=== PATIENT | male | born 1975 | race Caucasian/White ===

== ENCOUNTER 2017-08-13 21:25 | Emergency (ER) | payer MEDICARE, MEDICAID ==
[~2017-08-13] VITALS: Ht 182.9 cm; Wt 112.6 kg
[2017-08-13 22:25] VITALS: BP 142/85
== END 2017-08-13 22:27 | disposition home or self-care (01) ==
LOC: ER 21:26
DX: B34.9 Viral infection, unspecified (principal)
CPT/HCPCS: 99281

== ENCOUNTER 2017-08-16 09:40 | Inpatient (IN) | payer MEDICARE, MEDICAID ==
[~2017-08-16] VITALS: Ht 182.9 cm; Wt 107.2 kg
[2017-08-16] MEDS ORDERED: normal saline 1000ML IV soln IVB ONE (10:10)
[2017-08-16 10:30] LABS: BASOPHILS % (AUTO) 0.1 % (0-1); EOSINOPHILS # (AUTO) 0.2 X10'3 (0-0.9); EOSINOPHILS % (AUTO) 1.1 % (0-6); HEMATOCRIT 43.6 % (42.0-52.0); HEMOGLOBIN 14.6 g/dl (14.0-17.9); LYMPHOCYTES # (AUTO) 0.9 X10'3 (1.1-4.8); LYMPHOCYTES % (AUTO) 5.5 % (21-51); MEAN CORPUSCULAR HEMOGLOBIN 27.6 PG (27.0-31.0); MEAN CORPUSCULAR HGB CONC 33.6 % (33.0-36.5); MEAN CORPUSCULAR VOLUME 82.2 FL (78-98); MEAN PLATELET VOLUME 10.1 FL (7.4-10.4); MONOCYTES % (AUTO) 6.4 % (2-12); NEUTROPHILS # (AUTO) 13.4 X10'3 (1.8-7.7); NEUTROPHILS % (AUTO) 86.9 % (42-75); PLATELET COUNT 178 X10'3 (140-440); RED BLOOD COUNT 5.31 X10'6 (4.70-6.10); RED CELL DISTRIBUTION WIDTH 13.1 % (11.5-14.5); WHITE BLOOD COUNT 15.4 X10'3 (4.5-11.0)
[2017-08-16 10:40] LABS: PARTIAL THROMBOPLASTIN TIME 27 SECONDS (22-32); PROTHROMBIN TIME 10.7 SECONDS (9.0-12.0)
[2017-08-16 10:48] LABS: ALANINE AMINOTRANSFERASE 11 U/L (12-78); ALBUMIN 3.2 G/DL (3.4-5.0); ALBUMIN/GLOBULIN RATIO 0.6 (1.1-1.5); ALKALINE PHOSPHATASE 102 IU/L (46-116); ANION GAP 25 (8-16); ASPARTATE AMINO TRANSFERASE 7 U/L (10-37); BILIRUBIN,TOTAL 1.1 MG/DL (0.1-1.0); BLOOD UREA NITROGEN 24 MG/DL (7-18); BUN/CREATININE RATIO 16.4 (5.4-32.0); CHLORIDE 99 MMOL/L (99-107); CREATININE 1.46 MG/DL (0.60-1.10); ETHANOL < 0.010 GM/DL (0.0-0.010); POTASSIUM 4.5 MMOL/L (3.5-5.1); SODIUM 137 MMOL/L (135-145); TOTAL PROTEIN 8.3 G/DL (6.4-8.2); eGFR 53 ML/MIN
[2017-08-16 10:50] LABS: GLUCOSE 493 MG/DL (70-104)
[2017-08-16] MEDS ORDERED: potassium Cl 20 mEq SR tablet PO PRN ×4 (11:05→12:25)
[2017-08-16] MEDS ORDERED: sodium phosphate inj. 30 MMOL in dextrose 5%-water 250 ML IV PRN ×2 (11:05→12:25)
[2017-08-16] MEDS ORDERED: sodium bicarbonate (8.4%) inj. 100 MEQ in sodium chloride 0.45% 500ml 500 ML IV PRN ×2 (11:05→12:24)
[2017-08-16] MEDS ORDERED: potassium Cl 40MEQ/NS 500ml 500 ML IV PRN ×4 (11:05→12:25)
[2017-08-16] MEDS ORDERED: sodium bicarbonate (8.4%) inj. 50 MEQ in sodium chloride 0.45% 500ml 250 ML IV PRN ×2 (11:05→12:24)
[2017-08-16] MEDS ORDERED: potassium CL 20mEq in D5-1/2NS 1,000 ML IV PRN ×2 (11:05→12:24)
[2017-08-16] MEDS ORDERED: sodium phosphate inj. 15 MMOL in dextrose 5%-water 150 ML IV PRN ×2 (11:05→12:25)
[2017-08-16] MEDS ORDERED: acetaminophen 325mg tablet PO STA (11:05)
[2017-08-16] MEDS ORDERED: insulin regular, human 10 units/0.1 ml syringe SQ PRN ×2 (11:05→12:25)
[2017-08-16] MEDS ORDERED: Neutra Phos packet PO PRN ×2 (11:05→12:25)
[2017-08-16] MEDS ORDERED: normal saline 1000ml 1,000 ML IV SCH (11:05)
[2017-08-16] MEDS: normal saline 1000ml 1,000 ML IV SCH ×7 (11:22→20:24)
[2017-08-16 12:10] LABS: ABG BASE EXCESS -15.4 mmol/L (-2.0-3.0); ABG HCO3 8.5 mmol/L (22.0-26.0); ABG OXYGEN SATURATION 95.6 % (95-98); ABG PCO2 (T) 17.9 mmHg (35.0-48.0); ABG PH (T) 7.292 (7.350-7.450); ABG PO2 (T) 80.9 mmHg (83-108); ALLEN'S TEST Positive; FMetHb 0.3 % (0.3-1.12); FO2Hb 94.4 % (94-100); RESPIRATORY RATE (OBSERVED) 26 b/min; TOTAL HEMOGLOBIN 15.1 G/dl (14.0-18.0)
[2017-08-16] MEDS ORDERED: insulin regular, DKA only 100 UNIT in normal saline 100ml IV soln 99 ML IV SCH ×2 (12:24)
[2017-08-16] MEDS: K and/or MAG REPLACEMENT MC SCH (12:25)
[2017-08-16] MEDS ORDERED: CefTRIAXone 2gm/NS 100ml IVPB 100 ML IV ONE ×2 (13:30→13:35)
[2017-08-16] MEDS: insulin regular, DKA only 100 UNIT in normal saline 100ml IV soln 99 ML IV SCH ×2 (13:31)
[2017-08-16 15:11] LABS: ALBUMIN 2.8 G/DL (3.4-5.0); ANION GAP 22 (8-16); BLOOD UREA NITROGEN 22 MG/DL (7-18); BUN/CREATININE RATIO 15.3 (5.4-32.0); CALCIUM 8.4 MG/DL (8.5-10.1); CHLORIDE 107 MMOL/L (99-107); CREATININE 1.44 MG/DL (0.60-1.10); GLUCOSE 370 MG/DL (70-104); POTASSIUM 4.3 MMOL/L (3.5-5.1); SODIUM 143 MMOL/L (135-145); eGFR 54 ML/MIN
[2017-08-16 15:13] LABS: TOTAL CARBON DIOXIDE 13.8 MMOL/L (24-32)
[2017-08-16] MEDS ORDERED: magnesium hydroxide 30ml (MOM) UD suspension PO PRN (16:00)
[2017-08-16] MEDS ORDERED: acetaminophen 325mg tablet PO PRN (16:00)
[2017-08-16] MEDS ORDERED: mag hydrox/Alum hydrox/simeth 30ml oral suspension PO PRN (16:00)
[2017-08-16] MEDS ORDERED: ondansetron/PF 4mg/2ml inj IV PRN (16:00)
[2017-08-16] MEDS ORDERED: NO HOME MEDS (16:25)
[2017-08-16] MEDS ORDERED: LORazepam 1 MG tablet PO ONE (17:05)
[2017-08-16 18:39] LABS: CLARITY,URINE CLEAR (Clear); COLOR,URINE YELLOW (Yellow); GLUCOSE, URINE 500 mg/dl (Neg); KETONES,URINE >=80 mg/dl (Neg); LEUKOCYTE ESTERASE ,URINE NEGATIVE (Neg); NITRITES, URINE NEGATIVE (Neg); OCCULT BLOOD,URINE SMALL (Neg); PH,URINE 5.5 (4.8-8.0); PROTEIN,URINE 30 mg/dl (Neg)
[2017-08-16 18:50] LABS: UA COLLECTION TYPE FOLEY CATH
[2017-08-16 18:54] LABS: URINE AMPHETAMINE SCREEN NEGATIVE (Neg); URINE BARBITUATE SCREEN NEGATIVE (Neg); URINE BENZODIAZEPINES SCREEN NEGATIVE (Neg); URINE CANNABINOID SCREEN NEGATIVE (Neg); URINE COCAINE SCREEN NEGATIVE (Neg); URINE METHADONE SCREEN NEGATIVE (Neg); URINE OPIATE SCREEN NEGATIVE (Neg); URINE PHENCYCLIDINE SCREEN NEGATIVE (Neg)
[2017-08-16 18:56] LABS: COARSE GRANULAR CAST 0-3 /LPF (NEGATIVE); MUCUS STRANDS NONE SEEN /LPF (Neg); SQUAMOUS EPITHELIAL CELL,UR NONE SEEN /LPF (FEW)
[2017-08-16 18:57] LABS: RENAL CELLS, URINE MANY /HPF; TRANSITIONAL EPI CELLS,URINE MANY /HPF
[2017-08-16 18:58] LABS: BACTERIA,URINE NONE SEEN /HPF (Neg); WBC,URINE 0-4 /HPF (0-4)
[2017-08-16 19:15] VITALS: BP 118/67
[2017-08-16 21:03] LABS: HEMOGLOBIN A1C 10.8 % (4.5-6.2)
[2017-08-16 21:11] LABS: ALBUMIN 2.6 G/DL (3.4-5.0); ANION GAP 18 (8-16); BLOOD UREA NITROGEN 21 MG/DL (7-18); BUN/CREATININE RATIO 16.9 (5.4-32.0); CALCIUM 8.1 MG/DL (8.5-10.1); CHLORIDE 109 MMOL/L (99-107); CREATININE 1.24 MG/DL (0.60-1.10); GLUCOSE 262 MG/DL (70-104); PHOSPHORUS 2.3 MG/DL (2.3-4.5); POTASSIUM 3.9 MMOL/L (3.5-5.1); SODIUM 142 MMOL/L (135-145); TOTAL CARBON DIOXIDE 15.2 MMOL/L (24-32); eGFR 65 ML/MIN
[2017-08-16] MEDS: potassium Cl 20mEq in NS 1,000 ML IV SCH (21:23)
[2017-08-16 22:51] LABS: ALBUMIN 2.6 G/DL (3.4-5.0); ANION GAP 18 (8-16); BLOOD UREA NITROGEN 20 MG/DL (7-18); BUN/CREATININE RATIO 16.9 (5.4-32.0); CALCIUM 8.3 MG/DL (8.5-10.1); CHLORIDE 111 MMOL/L (99-107); CREATININE 1.18 MG/DL (0.60-1.10); GLUCOSE 194 MG/DL (70-104); PHOSPHORUS 1.9 MG/DL (2.3-4.5); POTASSIUM 3.7 MMOL/L (3.5-5.1); SODIUM 144 MMOL/L (135-145); TOTAL CARBON DIOXIDE 15.1 MMOL/L (24-32); eGFR 68 ML/MIN
[2017-08-16 23:00] VITALS: BP 108/53
[2017-08-17] MEDS: normal saline 1000ml 1,000 ML IV SCH ×3 (00:24→08:24)
[2017-08-17] MEDS: potassium Cl 20mEq in NS 1,000 ML IV SCH ×3 (00:51→08:49)
[2017-08-17 01:06] LABS: ALBUMIN 2.4 G/DL (3.4-5.0); ANION GAP 14 (8-16); BLOOD UREA NITROGEN 19 MG/DL (7-18); BUN/CREATININE RATIO 16.2 (5.4-32.0); CALCIUM 7.7 MG/DL (8.5-10.1); CHLORIDE 109 MMOL/L (99-107); CREATININE 1.17 MG/DL (0.60-1.10); GLUCOSE 343 MG/DL (70-104); POTASSIUM 4.5 MMOL/L (3.5-5.1); SODIUM 140 MMOL/L (135-145); TOTAL CARBON DIOXIDE 16.8 MMOL/L (24-32); eGFR 69 ML/MIN
[2017-08-17 03:00] VITALS: BP 118/72
[2017-08-17 03:06] LABS: ALBUMIN 2.5 G/DL (3.4-5.0); ANION GAP 13 (8-16); BLOOD UREA NITROGEN 20 MG/DL (7-18); BUN/CREATININE RATIO 18.2 (5.4-32.0); CALCIUM 8.2 MG/DL (8.5-10.1); CHLORIDE 111 MMOL/L (99-107); GLUCOSE 114 MG/DL (70-104); PHOSPHORUS 1.5 MG/DL (2.3-4.5); POTASSIUM 3.5 MMOL/L (3.5-5.1); SODIUM 143 MMOL/L (135-145); TOTAL CARBON DIOXIDE 18.9 MMOL/L (24-32); eGFR 74 ML/MIN
[2017-08-17 04:55] LABS: ALBUMIN 2.3 G/DL (3.4-5.0); ANION GAP 12 (8-16); BLOOD UREA NITROGEN 19 MG/DL (7-18); BUN/CREATININE RATIO 17.1 (5.4-32.0); CALCIUM 7.8 MG/DL (8.5-10.1); CHLORIDE 109 MMOL/L (99-107); CREATININE 1.11 MG/DL (0.60-1.10); GLUCOSE 309 MG/DL (70-104); POTASSIUM 4.4 MMOL/L (3.5-5.1); SODIUM 139 MMOL/L (135-145); TOTAL CARBON DIOXIDE 17.7 MMOL/L (24-32); eGFR 73 ML/MIN
[2017-08-17 06:00] VITALS: BP 100/64
[2017-08-17] MEDS: insulin regular, DKA only 100 UNIT in normal saline 100ml IV soln 99 ML IV SCH ×2 (07:11)
[2017-08-17] MEDS: K and/or MAG REPLACEMENT MC SCH (08:00)
[2017-08-17] MEDS ORDERED: K and/or MAG REPLACEMENT MC SCH (08:00)
[2017-08-17 08:39] LABS: ALANINE AMINOTRANSFERASE 6 U/L (12-78); ALBUMIN 2.4 G/DL (3.4-5.0); ALBUMIN/GLOBULIN RATIO 0.6 (1.1-1.5); ALKALINE PHOSPHATASE 77 IU/L (46-116); ANION GAP 13 (8-16); ASPARTATE AMINO TRANSFERASE 8 U/L (10-37); BILIRUBIN,TOTAL 0.4 MG/DL (0.1-1.0); BLOOD UREA NITROGEN 17 MG/DL (7-18); BUN/CREATININE RATIO 15.5 (5.4-32.0); CALCIUM 8.4 MG/DL (8.5-10.1); CHLORIDE 110 MMOL/L (99-107); GLUCOSE 165 MG/DL (70-104); POTASSIUM 3.3 MMOL/L (3.5-5.1); SODIUM 142 MMOL/L (135-145); TOTAL PROTEIN 6.7 G/DL (6.4-8.2); eGFR 74 ML/MIN
[2017-08-17 11:00] VITALS: BP 110/65
[2017-08-17 11:47] LABS: ALANINE AMINOTRANSFERASE 11 U/L (12-78); ALBUMIN 2.4 G/DL (3.4-5.0); ALBUMIN/GLOBULIN RATIO 0.6 (1.1-1.5); ALKALINE PHOSPHATASE 78 IU/L (46-116); ANION GAP 13 (8-16); ASPARTATE AMINO TRANSFERASE 10 U/L (10-37); BILIRUBIN,TOTAL 0.4 MG/DL (0.1-1.0); BLOOD UREA NITROGEN 16 MG/DL (7-18); CALCIUM 8.1 MG/DL (8.5-10.1); CHLORIDE 108 MMOL/L (99-107); GLUCOSE 183 MG/DL (70-104); POTASSIUM 3.1 MMOL/L (3.5-5.1); SODIUM 140 MMOL/L (135-145); TOTAL CARBON DIOXIDE 18.6 MMOL/L (24-32); TOTAL PROTEIN 6.6 G/DL (6.4-8.2); eGFR 83 ML/MIN
[2017-08-17] MEDS ORDERED: azithromycin/NS 500mg/250ml 250 ML IV ONE (11:55)
[2017-08-17] MEDS ORDERED: cefTRIAXone 1g/NS 100ml IVPB 100 ML IV ONE (11:55)
[2017-08-17] MEDS: LORazepam 2 mg/ml vial IV PRN ×2 (13:21→13:56)
[2017-08-17 15:00] VITALS: BP 119/83
[2017-08-17 15:08] LABS: CLARITY,URINE Clear (Clear); COLOR,URINE Yellow (Yellow); GLUCOSE, URINE >=1000 mg/dl (Neg); KETONES,URINE 40 mg/dl (Neg); LEUKOCYTE ESTERASE ,URINE Negative (Neg); NITRITES, URINE Negative (Neg); OCCULT BLOOD,URINE Trace (Neg); PROTEIN,URINE 30 mg/dl (Neg)
[2017-08-17 15:18] LABS: UA COLLECTION TYPE STRAIGHT CATH
[2017-08-17 15:19] LABS: BACTERIA,URINE NONE SEEN /HPF (Neg); MUCUS STRANDS NONE SEEN /LPF (Neg); SQUAMOUS EPITHELIAL CELL,UR NONE SEEN /LPF (FEW); WBC,URINE NONE SEEN /HPF (0-4)
[2017-08-17 15:20] LABS: ALANINE AMINOTRANSFERASE 6 U/L (12-78); ALBUMIN 2.3 G/DL (3.4-5.0); ALBUMIN/GLOBULIN RATIO 0.5 (1.1-1.5); ALKALINE PHOSPHATASE 82 IU/L (46-116); ANION GAP 13 (8-16); ASPARTATE AMINO TRANSFERASE 9 U/L (10-37); BILIRUBIN,TOTAL 0.5 MG/DL (0.1-1.0); BLOOD UREA NITROGEN 14 MG/DL (7-18); BUN/CREATININE RATIO 12.3 (5.4-32.0); CALCIUM 8.2 MG/DL (8.5-10.1); CHLORIDE 107 MMOL/L (99-107); CREATININE 1.14 MG/DL (0.60-1.10); GLUCOSE 271 MG/DL (70-104); POTASSIUM 3.5 MMOL/L (3.5-5.1); SODIUM 139 MMOL/L (135-145); TOTAL CARBON DIOXIDE 18.6 MMOL/L (24-32); TOTAL PROTEIN 6.7 G/DL (6.4-8.2); eGFR 71 ML/MIN
[2017-08-17] MEDS ORDERED: valproate sod inj 1,000 MG in normal saline 100ml IV soln 90 ML IV ONE (18:00)
[2017-08-17] MEDS ORDERED: LevETIRAcetam 1500 MG in NORMAL SALINE 100ml bag IV ONE (18:25)
[2017-08-17 19:00] VITALS: BP 130/79
[2017-08-17] MEDS ORDERED: dexamethasone sod phosphate 10mg/ml inj IV ONE (21:20)
[2017-08-17] MEDS ORDERED: potassium Cl 40MEQ/250ML bag 250 ML IV PRN ×2 (22:45)
[2017-08-17 23:00] VITALS: BP 94/64
[2017-08-17 23:04] LABS: ALANINE AMINOTRANSFERASE 13 U/L (12-78); ALBUMIN 2.3 G/DL (3.4-5.0); ALBUMIN/GLOBULIN RATIO 0.5 (1.1-1.5); ALKALINE PHOSPHATASE 82 IU/L (46-116); ANION GAP 14 (8-16); ASPARTATE AMINO TRANSFERASE 12 U/L (10-37); BILIRUBIN,TOTAL 0.4 MG/DL (0.1-1.0); BLOOD UREA NITROGEN 11 MG/DL (7-18); BUN/CREATININE RATIO 12.6 (5.4-32.0); CALCIUM 8.1 MG/DL (8.5-10.1); CHLORIDE 106 MMOL/L (99-107); CREATININE 0.87 MG/DL (0.60-1.10); GLUCOSE 140 MG/DL (70-104); SODIUM 139 MMOL/L (135-145); TOTAL CARBON DIOXIDE 19.1 MMOL/L (24-32); TOTAL PROTEIN 6.8 G/DL (6.4-8.2); eGFR > 90 ML/MIN
[2017-08-17] MEDS ORDERED: acetaminophen 650mg rectal suppository RC PRN (23:05)
[2017-08-17 23:13] LABS: POTASSIUM 2.8 MMOL/L (3.5-5.1)
[2017-08-17] MEDS ORDERED: potassium Cl 40MEQ/NS 500ml 1,000 ML IV ONE (23:54)
[2017-08-18] VITALS (22 sets, daily range): BP systolic 95–140; BP diastolic 63–90
[2017-08-18] MEDS: Dextrose 10%-water IV solution 1,000 ML IV SCH ×2 (01:23→07:00)
[2017-08-18] MEDS ORDERED: potassium Cl 40MEQ/250ML bag 500 ML IV ONE (01:44)
[2017-08-18] MEDS: dexamethasone 4mg/ml inj IV SCH ×4 (03:11→20:52)
[2017-08-18] MEDS ORDERED: vasoPRESSIN 20 units/ml inj. ONE (05:49)
[2017-08-18 07:10] LABS: BASOPHILS % (AUTO) 0 % (0-1); EOSINOPHILS # (AUTO) 0.1 X10'3 (0-0.9); EOSINOPHILS % (AUTO) 1.2 % (0-6); HEMATOCRIT 40.3 % (42.0-52.0); HEMOGLOBIN 13.9 g/dl (14.0-17.9); LYMPHOCYTES # (AUTO) 0.8 X10'3 (1.1-4.8); LYMPHOCYTES % (AUTO) 7.2 % (21-51); MEAN CORPUSCULAR HEMOGLOBIN 27.6 PG (27.0-31.0); MEAN CORPUSCULAR HGB CONC 34.6 % (33.0-36.5); MEAN CORPUSCULAR VOLUME 79.7 FL (78-98); MONOCYTES # (AUTO) 0.3 X10'3 (0-0.9); MONOCYTES % (AUTO) 2.5 % (2-12); NEUTROPHILS # (AUTO) 10.4 X10'3 (1.8-7.7); NEUTROPHILS % (AUTO) 89.1 % (42-75); PLATELET COUNT 172 X10'3 (140-440); RED BLOOD COUNT 5.06 X10'6 (4.70-6.10); RED CELL DISTRIBUTION WIDTH 12.7 % (11.5-14.5); WHITE BLOOD COUNT 11.6 X10'3 (4.5-11.0)
[2017-08-18] MEDS ORDERED: magnesium 4gm in 100ml NS 100 ML IV PRN (07:10)
[2017-08-18] MEDS ORDERED: magnesium 2GM in 50ml NS 50 ML IV PRN (07:10)
[2017-08-18 07:26] LABS: ANION GAP 12 (8-16); BILIRUBIN,TOTAL 0.4 MG/DL (0.1-1.0); BLOOD UREA NITROGEN 10 MG/DL (7-18); BUN/CREATININE RATIO 12.5 (5.4-32.0); CALCIUM 8.7 MG/DL (8.5-10.1); CHLORIDE 104 MMOL/L (99-107); GLUCOSE 145 MG/DL (70-104); POTASSIUM 3.7 MMOL/L (3.5-5.1); SODIUM 137 MMOL/L (135-145); TOTAL CARBON DIOXIDE 20.6 MMOL/L (24-32); TOTAL PROTEIN 7.6 G/DL (6.4-8.2); eGFR > 90 ML/MIN
[2017-08-18 07:27] LABS: ALANINE AMINOTRANSFERASE 14 U/L (12-78); ALBUMIN 2.5 G/DL (3.4-5.0); ALBUMIN/GLOBULIN RATIO 0.5 (1.1-1.5); ALKALINE PHOSPHATASE 89 IU/L (46-116); ASPARTATE AMINO TRANSFERASE 17 U/L (10-37)
[2017-08-18] MEDS: K and/or MAG REPLACEMENT MC SCH (08:00)
[2017-08-18] MEDS ORDERED: dextrose ORAL solution 15 GM/59 ML bottle PO PRN ×4 (08:15)
[2017-08-18] MEDS ORDERED: dextrose 50%-water 50ml dispensing syringe IV PRN ×4 (08:15)
[2017-08-18] MEDS ORDERED: glucagon, human recombinant 1mg kit SUBCUT PRN ×2 (08:15)
[2017-08-18] MEDS ORDERED: insulin Lispro (HumaLOG) vial - multi-dose SQ SCH (08:15)
[2017-08-18] MEDS ORDERED: MESSAGE TO PHARMACY PO ONE ×2 (08:15)
[2017-08-18] MEDS: cefTRIAXone 1g/NS 100ml IVPB 100 ML IV SCH (08:18)
[2017-08-18] MEDS ORDERED: insulin glargine (Lantus) pen - multi-dose SQ ONE (09:40)
[2017-08-18] MEDS: levetiracetam inj 500 MG in normal saline 100ml IV soln 95 ML IV SCH ×2 (09:45→20:50)
[2017-08-18] MEDS: azithromycin/NS 500mg/250ml 250 ML IV SCH (09:46)
[2017-08-18] MEDS: insulin Lispro (HumaLOG) vial - multi-dose SQ SCH ×4 (10:50→21:13)
[2017-08-18] MEDS ORDERED: insulin regular, DKA only 100 UNIT in normal saline 100ml IV soln 99 ML IV SCH ×2 (11:05)
[2017-08-18] MEDS ORDERED: gadopentetate dimeglumine 7.5 MMOL/15 ML syringe ONE (14:28)
[2017-08-18] MEDS: normal saline 1000ml 1,000 ML IV SCH (15:52)
[2017-08-18] MEDS: valproic acid 250mg capsule PO SCH (20:51)
[2017-08-18] MEDS ORDERED: insulin glargine (Lantus) pen - multi-dose SQ SCH (21:00)
[2017-08-18] MEDS: insulin glargine (Lantus) pen - multi-dose SQ SCH (21:10)
[2017-08-19] VITALS (21 sets, daily range): BP systolic 101–136; BP diastolic 41–81
[2017-08-19] MEDS: dexamethasone 4mg/ml inj IV SCH ×4 (02:45→20:52)
[2017-08-19] MEDS: insulin Lispro (HumaLOG) vial - multi-dose SQ SCH ×4 (02:48→21:15)
[2017-08-19 05:32] LABS: BASOPHILS # (AUTO) 0.1 X10'3 (0-0.2); BASOPHILS % (AUTO) 0.7 % (0-1); EOSINOPHILS # (AUTO) 0.2 X10'3 (0-0.9); EOSINOPHILS % (AUTO) 1.2 % (0-6); HEMATOCRIT 36.5 % (42.0-52.0); LYMPHOCYTES % (AUTO) 6.9 % (21-51); MEAN CORPUSCULAR HEMOGLOBIN 28.2 PG (27.0-31.0); MEAN CORPUSCULAR HGB CONC 35.7 % (33.0-36.5); MEAN PLATELET VOLUME 9.8 FL (7.4-10.4); MONOCYTES # (AUTO) 0.5 X10'3 (0-0.9); MONOCYTES % (AUTO) 3.1 % (2-12); NEUTROPHILS # (AUTO) 13.4 X10'3 (1.8-7.7); NEUTROPHILS % (AUTO) 88.1 % (42-75); PLATELET COUNT 185 X10'3 (140-440); RED BLOOD COUNT 4.62 X10'6 (4.70-6.10); RED CELL DISTRIBUTION WIDTH 12.8 % (11.5-14.5); WHITE BLOOD COUNT 15.2 X10'3 (4.5-11.0)
[2017-08-19 05:50] LABS: ALANINE AMINOTRANSFERASE 16 U/L (12-78); ALBUMIN 2.1 G/DL (3.4-5.0); ALBUMIN/GLOBULIN RATIO 0.5 (1.1-1.5); ALKALINE PHOSPHATASE 91 IU/L (46-116); ANION GAP 13 (8-16); ASPARTATE AMINO TRANSFERASE 17 U/L (10-37); BILIRUBIN,TOTAL 0.4 MG/DL (0.1-1.0); BLOOD UREA NITROGEN 20 MG/DL (7-18); BUN/CREATININE RATIO 26.7 (5.4-32.0); CALCIUM 8.1 MG/DL (8.5-10.1); CHLORIDE 101 MMOL/L (99-107); CREATININE 0.75 MG/DL (0.60-1.10); GLUCOSE 291 MG/DL (70-104); POTASSIUM 3.6 MMOL/L (3.5-5.1); SODIUM 136 MMOL/L (135-145); TOTAL PROTEIN 6.4 G/DL (6.4-8.2); eGFR > 90 ML/MIN
[2017-08-19] MEDS: valproic acid 250mg capsule PO SCH ×3 (08:06→21:12)
[2017-08-19] MEDS: cefTRIAXone 1g/NS 100ml IVPB 100 ML IV SCH (08:06)
[2017-08-19] MEDS: azithromycin/NS 500mg/250ml 250 ML IV SCH (08:06)
[2017-08-19] MEDS: levetiracetam inj 500 MG in normal saline 100ml IV soln 95 ML IV SCH ×2 (08:06→20:52)
[2017-08-19] MEDS: K and/or MAG REPLACEMENT MC SCH (08:27)
[2017-08-19] MEDS: normal saline 1000ml 1,000 ML IV SCH (14:14)
[2017-08-19] MEDS: insulin glargine (Lantus) pen - multi-dose SQ SCH (21:13)
[2017-08-20] VITALS (18 sets, daily range): BP systolic 106–134; BP diastolic 64–80
[2017-08-20] MEDS: dexamethasone 4mg/ml inj IV SCH ×3 (02:25→13:34)
[2017-08-20] MEDS: LORazepam 2 mg/ml vial IV PRN ×4 (02:25→12:09)
[2017-08-20 06:23] LABS: BASOPHILS # (AUTO) 0.1 X10'3 (0-0.2); BASOPHILS % (AUTO) 0.7 % (0-1); EOSINOPHILS % (AUTO) 0 % (0-6); HEMATOCRIT 38.9 % (42.0-52.0); HEMOGLOBIN 13.5 g/dl (14.0-17.9); LYMPHOCYTES % (AUTO) 6.4 % (21-51); MEAN CORPUSCULAR HEMOGLOBIN 27.7 PG (27.0-31.0); MEAN CORPUSCULAR HGB CONC 34.7 % (33.0-36.5); MEAN PLATELET VOLUME 10.4 FL (7.4-10.4); MONOCYTES # (AUTO) 0.5 X10'3 (0-0.9); MONOCYTES % (AUTO) 3.5 % (2-12); NEUTROPHILS # (AUTO) 13.8 X10'3 (1.8-7.7); NEUTROPHILS % (AUTO) 89.4 % (42-75); PLATELET COUNT 192 X10'3 (140-440); RED BLOOD COUNT 4.86 X10'6 (4.70-6.10); RED CELL DISTRIBUTION WIDTH 12.6 % (11.5-14.5); WHITE BLOOD COUNT 15.4 X10'3 (4.5-11.0)
[2017-08-20 07:01] LABS: ALANINE AMINOTRANSFERASE 19 U/L (12-78); ALBUMIN 2.1 G/DL (3.4-5.0); ALBUMIN/GLOBULIN RATIO 0.5 (1.1-1.5); ALKALINE PHOSPHATASE 93 IU/L (46-116); ANION GAP 12 (8-16); ASPARTATE AMINO TRANSFERASE 13 U/L (10-37); BILIRUBIN,TOTAL 0.3 MG/DL (0.1-1.0); BLOOD UREA NITROGEN 21 MG/DL (7-18); BUN/CREATININE RATIO 25.3 (5.4-32.0); CALCIUM 8.1 MG/DL (8.5-10.1); CHLORIDE 101 MMOL/L (99-107); CREATININE 0.83 MG/DL (0.60-1.10); GLUCOSE 278 MG/DL (70-104); MAGNESIUM 2.2 MG/DL (1.5-2.4); POTASSIUM 3.5 MMOL/L (3.5-5.1); SODIUM 136 MMOL/L (135-145); TOTAL CARBON DIOXIDE 23.4 MMOL/L (24-32); TOTAL PROTEIN 6.2 G/DL (6.4-8.2); eGFR > 90 ML/MIN
[2017-08-20] MEDS ORDERED: insulin glargine (Lantus) pen - multi-dose SQ SCH ×2 (08:00→21:00)
[2017-08-20] MEDS: K and/or MAG REPLACEMENT MC SCH (08:00)
[2017-08-20] MEDS: azithromycin/NS 500mg/250ml 250 ML IV SCH (08:25)
[2017-08-20] MEDS: cefTRIAXone 1g/NS 100ml IVPB 100 ML IV SCH (08:33)
[2017-08-20] MEDS: levetiracetam inj 500 MG in normal saline 100ml IV soln 95 ML IV SCH (09:22)
[2017-08-20] MEDS: normal saline 1000ml 1,000 ML IV SCH (09:22)
[2017-08-20] MEDS: insulin Lispro (HumaLOG) vial - multi-dose SQ SCH (09:25)
[2017-08-20] MEDS ORDERED: levetiracetam inj 500 MG in normal saline 100ml IV soln 95 ML IV ONE (10:50)
[2017-08-20] MEDS: valproic acid 250mg capsule PO SCH ×2 (11:06→15:06)
[2017-08-20] MEDS ORDERED: dexamethasone sod phosphate 10mg/ml inj IV STA (13:31)
[2017-08-20] MEDS ORDERED: lactobacillus rhamnosus 10,000 MMU CELLS/CAPSULE PO SCH (17:30)
[2017-08-20] MEDS ORDERED: levetiracetam inj 750 MG in normal saline 100ml IV soln 92.5 ML IV SCH (20:00)
== END 2017-08-20 18:04 | disposition short-term general hospital (02) | DRG 871 ==
LOC: ER 09:40 → ED HOLD 15:58 → PCU 3S 19:20 → CICU 2S 08-17 21:49
PROVIDERS: ADMIT Internal Medicine
DX: A41.9 Sepsis, unspecified organism (principal); G93.41 Metabolic encephalopathy; E11.10 Type 2 diabetes mellitus with ketoacidosis without coma; D49.6 Neoplasm of unspecified behavior of brain; G40.409 Other generalized epilepsy and epileptic syndromes, not intractable, without status epilepticus; E86.0 Dehydration; G80.9 Cerebral palsy, unspecified; Z79.899 Other long term (current) drug therapy; Z86.61 Personal history of infections of the central nervous system
CPT/HCPCS: 36415; 36600; 70450; 70553; 71045; 74176; 80048; 80053; 80164; 80305; 80320; 81001; 82140; 82803; 82948; 83036; 83605; 83735; 84100; 84145; 84484; 85018; 85025; 85610; 85730; 87040; 87070; 87502; 87503; 93005; 95816; 96365; 96372; 99285; A4315; A4344; A4357; A6213; A9579; J0456; J0696; J1100; J1815; J1953; J2060; J2405; J3480; J3490; J7030; J7060

== ENCOUNTER 2017-09-06 10:26 | Inpatient (IN) | payer MEDICARE, MEDICAID ==
[~2017-09-06] VITALS: Ht 182.9 cm; Wt 105.0 kg
[~2017-09-06 10:26] MED LIST: NO HOME MEDS
[2017-09-06 19:00] VITALS: BP 98/59
[2017-09-06] MEDS ORDERED: mag hydrox/Alum hydrox/simeth 30ml oral suspension PO PRN ×2 (20:00)
[2017-09-06] MEDS ORDERED: acetaminophen 325mg tablet PO PRN ×2 (20:00)
[2017-09-06] MEDS ORDERED: potassium Cl 20 mEq SR tablet PO PRN ×2 (20:00)
[2017-09-06] MEDS ORDERED: HYDROmorphone inj. 0.5 MG/0.5 ML DISP.SYRIN IV PRN ×2 (20:00)
[2017-09-06] MEDS ORDERED: HYDROcodone/acetaminophen 10/325mg tab PO PRN (20:00)
[2017-09-06] MEDS ORDERED: magnesium Cl slow-release 64mg tablet PO PRN (20:00)
[2017-09-06] MEDS ORDERED: ondansetron/PF 4mg/2ml inj IV PRN ×2 (20:00)
[2017-09-06] MEDS ORDERED: albuterol 2.5 MG/3 ML nebule NEB PRN (20:00)
[2017-09-06] MEDS ORDERED: BACL10TA2 PO (20:00)
[2017-09-06] MEDS ORDERED: HYDROcodone/acetaminophen 5mg/325mg tablet PO PRN (20:00)
[2017-09-06] MEDS ORDERED: magnesium 2GM in 50ml NS 50 ML IV PRN (20:00)
[2017-09-06] MEDS ORDERED: potassium Cl 40MEQ/NS 500ml 500 ML IV PRN ×2 (20:00)
[2017-09-06] MEDS ORDERED: magnesium 4gm in 100ml NS 100 ML IV PRN (20:00)
[2017-09-06] MEDS ORDERED: sodium chloride 3% IV.soln 500 ML IV SCH (20:00)
[2017-09-06] MEDS ORDERED: magnesium hydroxide 30ml (MOM) UD suspension PO PRN ×2 (20:00)
[2017-09-06] MEDS ORDERED: DEXA1TAB PO (20:11)
[2017-09-06] MEDS ORDERED: POLY17PO10 PO (20:11)
[2017-09-06] MEDS ORDERED: HYDR-569 PO (20:11)
[2017-09-06] MEDS ORDERED: PHEN100C4 PO (20:11)
[2017-09-06] MEDS ORDERED: FAMO-128 PO (20:11)
[2017-09-06] MEDS ORDERED: SENN-161 PO (20:11)
[2017-09-06] MEDS ORDERED: CEFT1VIA14 IV (20:18)
[2017-09-06] MEDS: normal saline 1000ml 1,000 ML IV SCH (20:43)
[2017-09-06] MEDS: sennosides 8.6mg tablet PO SCH (21:00)
[2017-09-06 21:09] LABS: PHENYTOIN (DILANTIN) 3.1 UG/ML (10.0-20.0)
[2017-09-06] MEDS: phenytoin sod ER 100mg capsule PO SCH (22:33)
[2017-09-06 22:41] LABS: ALBUMIN 2.4 G/DL (3.4-5.0); ANION GAP 12 (8-16); BLOOD UREA NITROGEN 6 MG/DL (7-18); CALCIUM 8.3 MG/DL (8.5-10.1); CHLORIDE 103 MMOL/L (99-107); CREATININE 0.67 MG/DL (0.60-1.10); GLUCOSE 198 MG/DL (70-104); POTASSIUM 3.8 MMOL/L (3.5-5.1); SODIUM 138 MMOL/L (135-145); TOTAL CARBON DIOXIDE 22.9 MMOL/L (24-32); eGFR > 90 ML/MIN
[2017-09-06 23:00] VITALS: BP 104/56
[2017-09-07 02:22] LABS: BASOPHILS % (AUTO) 0.5 % (0-1); EOSINOPHILS # (AUTO) 0.2 X10'3 (0-0.9); EOSINOPHILS % (AUTO) 2.1 % (0-6); HEMATOCRIT 31.6 % (42.0-52.0); HEMOGLOBIN 10.5 g/dl (14.0-17.9); LYMPHOCYTES # (AUTO) 1.1 X10'3 (1.1-4.8); LYMPHOCYTES % (AUTO) 13.3 % (21-51); MEAN CORPUSCULAR HEMOGLOBIN 27.9 PG (27.0-31.0); MEAN CORPUSCULAR HGB CONC 33.2 % (33.0-36.5); MEAN CORPUSCULAR VOLUME 84.1 FL (78-98); MEAN PLATELET VOLUME 8.2 FL (7.4-10.4); MONOCYTES # (AUTO) 0.5 X10'3 (0-0.9); MONOCYTES % (AUTO) 6.2 % (2-12); NEUTROPHILS # (AUTO) 6.6 X10'3 (1.8-7.7); NEUTROPHILS % (AUTO) 77.9 % (42-75); PLATELET COUNT 162 X10'3 (140-440); RED BLOOD COUNT 3.76 X10'6 (4.70-6.10); RED CELL DISTRIBUTION WIDTH 16.2 % (11.5-14.5); WHITE BLOOD COUNT 8.5 X10'3 (4.5-11.0)
[2017-09-07 02:41] LABS: GLUCOSE 168 MG/DL (70-104)
[2017-09-07 02:42] LABS: ALBUMIN 2.5 G/DL (3.4-5.0); ALBUMIN/GLOBULIN RATIO 0.7 (1.1-1.5); ANION GAP 11 (8-16); ASPARTATE AMINO TRANSFERASE 12 U/L (10-37); BILIRUBIN,TOTAL 0.3 MG/DL (0.1-1.0); BLOOD UREA NITROGEN 6 MG/DL (7-18); BUN/CREATININE RATIO 9.8 (5.4-32.0); CALCIUM 8.2 MG/DL (8.5-10.1); CHLORIDE 103 MMOL/L (99-107); CREATININE 0.61 MG/DL (0.60-1.10); MAGNESIUM 1.7 MG/DL (1.5-2.4); POTASSIUM 3.6 MMOL/L (3.5-5.1); SODIUM 140 MMOL/L (135-145); TOTAL CARBON DIOXIDE 26.2 MMOL/L (24-32); TOTAL PROTEIN 6.1 G/DL (6.4-8.2); eGFR > 90 ML/MIN
[2017-09-07 02:43] LABS: ALANINE AMINOTRANSFERASE 24 U/L (12-78); ALKALINE PHOSPHATASE 100 IU/L (46-116)
[2017-09-07 03:00] VITALS: BP 106/40
[2017-09-07 06:00] VITALS: BP 104/69
[2017-09-07] MEDS ORDERED: ENOX40SY7 SQ (06:54)
[2017-09-07] MEDS ORDERED: LEVE10002 PO (06:56)
[2017-09-07] MEDS ORDERED: METR500T PO (06:58)
[2017-09-07] MEDS: K and/or MAG REPLACEMENT MC SCH (08:00)
[2017-09-07] MEDS ORDERED: CEFTRIAXONE SODIUM 2 GM IV SCH (08:00)
[2017-09-07] MEDS: dexamethasone 1mg tablet PO SCH ×2 (08:22→17:09)
[2017-09-07] MEDS: famotidine 20mg tablet PO SCH ×2 (08:22→20:30)
[2017-09-07] MEDS: CefTRIAXone 2gm/NS 100ml IVPB 100 ML IV SCH ×2 (08:23→20:31)
[2017-09-07] MEDS ORDERED: sodium chloride 3% IV.soln 500 ML IV SCH (12:45)
[2017-09-07 12:59] VITALS: BP 94/57
[2017-09-07] MEDS ORDERED: dextrose 50%-water 50ml dispensing syringe IV PRN ×2 (13:30)
[2017-09-07] MEDS ORDERED: dextrose ORAL solution 15 GM/59 ML bottle PO PRN ×2 (13:30)
[2017-09-07] MEDS ORDERED: glucagon, human recombinant 1mg kit SUBCUT PRN (13:30)
[2017-09-07] MEDS ORDERED: MESSAGE TO PHARMACY PO ONE (13:30)
[2017-09-07 15:00] VITALS: BP 101/64
[2017-09-07] MEDS: normal saline 1000ml 1,000 ML IV SCH (16:10)
[2017-09-07 16:56] LABS: CLARITY,URINE CLEAR (Clear); COLOR,URINE STRAW (Yellow); GLUCOSE, URINE NEGATIVE (Neg); KETONES,URINE NEGATIVE (Neg); LEUKOCYTE ESTERASE ,URINE NEGATIVE (Neg); NITRITES, URINE NEGATIVE (Neg); OCCULT BLOOD,URINE TRACE-INTACT (Neg); PH,URINE 7.5 (4.8-8.0); PROTEIN,URINE NEGATIVE (Neg); UROBILINOGEN,URINE 0.2 E.U/dL (0.2-1.0)
[2017-09-07 16:57] LABS: UA COLLECTION TYPE FOLEY CATH
[2017-09-07 17:05] LABS: BACTERIA,URINE NONE SEEN /HPF (Neg); MUCUS STRANDS NONE SEEN /LPF (Neg); RBC,URINE 0-2 /HPF (0-2); SQUAMOUS EPITHELIAL CELL,UR NONE SEEN /LPF (FEW); WBC,URINE 0-4 /HPF (0-4); YEAST FEW /HPF (NEGATIVE)
[2017-09-07 18:00] VITALS: BP 122/80
[2017-09-07] MEDS: insulin Lispro (HumaLOG) vial - multi-dose SQ SCH (18:59)
[2017-09-07] MEDS: phenytoin sod ER 100mg capsule PO SCH (20:30)
[2017-09-07] MEDS: sennosides 8.6mg tablet PO SCH (20:32)
[2017-09-07] MEDS: insulin glargine (Lantus) pen - multi-dose SQ SCH (21:33)
[2017-09-07 22:00] VITALS: BP 99/56
[2017-09-08 03:00] VITALS: BP 101/61
[2017-09-08 03:40] LABS: BASOPHILS # (AUTO) 0.1 X10'3 (0-0.2); BASOPHILS % (AUTO) 0.9 % (0-1); EOSINOPHILS # (AUTO) 0.2 X10'3 (0-0.9); EOSINOPHILS % (AUTO) 3.2 % (0-6); HEMATOCRIT 34.6 % (42.0-52.0); HEMOGLOBIN 11.6 g/dl (14.0-17.9); LYMPHOCYTES # (AUTO) 1.2 X10'3 (1.1-4.8); LYMPHOCYTES % (AUTO) 17.3 % (21-51); MEAN CORPUSCULAR HEMOGLOBIN 27.8 PG (27.0-31.0); MEAN CORPUSCULAR HGB CONC 33.5 % (33.0-36.5); MONOCYTES # (AUTO) 0.5 X10'3 (0-0.9); MONOCYTES % (AUTO) 6.3 % (2-12); NEUTROPHILS # (AUTO) 5.2 X10'3 (1.8-7.7); NEUTROPHILS % (AUTO) 72.3 % (42-75); PLATELET COUNT 153 X10'3 (140-440); RED BLOOD COUNT 4.17 X10'6 (4.70-6.10); RED CELL DISTRIBUTION WIDTH 16.6 % (11.5-14.5); WHITE BLOOD COUNT 7.2 X10'3 (4.5-11.0)
[2017-09-08 04:13] LABS: ALANINE AMINOTRANSFERASE 22 U/L (12-78); ALBUMIN 2.6 G/DL (3.4-5.0); ALBUMIN/GLOBULIN RATIO 0.7 (1.1-1.5); ALKALINE PHOSPHATASE 100 IU/L (46-116); ANION GAP 11 (8-16); ASPARTATE AMINO TRANSFERASE 13 U/L (10-37); BILIRUBIN,TOTAL 0.3 MG/DL (0.1-1.0); BLOOD UREA NITROGEN 8 MG/DL (7-18); CALCIUM 8.8 MG/DL (8.5-10.1); CHLORIDE 105 MMOL/L (99-107); CREATININE 0.57 MG/DL (0.60-1.10); GLUCOSE 149 MG/DL (70-104); MAGNESIUM 1.8 MG/DL (1.5-2.4); POTASSIUM 3.9 MMOL/L (3.5-5.1); SODIUM 141 MMOL/L (135-145); TOTAL CARBON DIOXIDE 25.4 MMOL/L (24-32); TOTAL PROTEIN 6.4 G/DL (6.4-8.2); eGFR > 90 ML/MIN
[2017-09-08 06:00] VITALS: BP 108/69
[2017-09-08] MEDS: dexamethasone 1mg tablet PO SCH ×2 (07:30→17:13)
[2017-09-08] MEDS: famotidine 20mg tablet PO SCH ×2 (07:31→19:34)
[2017-09-08] MEDS: lactobacillus rhamnosus 10,000 MMU CELLS/CAPSULE PO SCH (07:31)
[2017-09-08] MEDS: CefTRIAXone 2gm/NS 100ml IVPB 100 ML IV SCH ×2 (07:31→19:34)
[2017-09-08] MEDS: K and/or MAG REPLACEMENT MC SCH (08:00)
[2017-09-08] MEDS: insulin Lispro (HumaLOG) vial - multi-dose SQ SCH ×3 (08:36→19:45)
[2017-09-08 11:00] VITALS: BP 97/62
[2017-09-08 19:00] VITALS: BP 99/63
[2017-09-08] MEDS: phenytoin sod ER 100mg capsule PO SCH (20:23)
[2017-09-08] MEDS: sennosides 8.6mg tablet PO SCH (20:23)
[2017-09-08] MEDS: insulin glargine (Lantus) pen - multi-dose SQ SCH (22:05)
[2017-09-08 23:00] VITALS: BP 98/65
[2017-09-09 03:00] VITALS: BP 95/65
[2017-09-09 04:18] LABS: BASOPHILS % (AUTO) 0.5 % (0-1); EOSINOPHILS # (AUTO) 0.2 X10'3 (0-0.9); EOSINOPHILS % (AUTO) 3.5 % (0-6); HEMATOCRIT 35.7 % (42.0-52.0); HEMOGLOBIN 12.1 g/dl (14.0-17.9); LYMPHOCYTES # (AUTO) 1.3 X10'3 (1.1-4.8); LYMPHOCYTES % (AUTO) 19.9 % (21-51); MEAN CORPUSCULAR VOLUME 82.3 FL (78-98); MEAN PLATELET VOLUME 7.9 FL (7.4-10.4); MONOCYTES # (AUTO) 0.5 X10'3 (0-0.9); MONOCYTES % (AUTO) 7.8 % (2-12); NEUTROPHILS # (AUTO) 4.6 X10'3 (1.8-7.7); NEUTROPHILS % (AUTO) 68.3 % (42-75); PLATELET COUNT 160 X10'3 (140-440); RED BLOOD COUNT 4.34 X10'6 (4.70-6.10); RED CELL DISTRIBUTION WIDTH 16.9 % (11.5-14.5); WHITE BLOOD COUNT 6.7 X10'3 (4.5-11.0)
[2017-09-09 04:39] LABS: ALANINE AMINOTRANSFERASE 23 U/L (12-78); ALBUMIN 2.8 G/DL (3.4-5.0); ALBUMIN/GLOBULIN RATIO 0.7 (1.1-1.5); ALKALINE PHOSPHATASE 110 IU/L (46-116); ANION GAP 10 (8-16); ASPARTATE AMINO TRANSFERASE 10 U/L (10-37); BILIRUBIN,TOTAL 0.4 MG/DL (0.1-1.0); BLOOD UREA NITROGEN 13 MG/DL (7-18); CALCIUM 8.8 MG/DL (8.5-10.1); CHLORIDE 102 MMOL/L (99-107); CREATININE 0.62 MG/DL (0.60-1.10); GLUCOSE 158 MG/DL (70-104); MAGNESIUM 1.8 MG/DL (1.5-2.4); POTASSIUM 3.8 MMOL/L (3.5-5.1); SODIUM 138 MMOL/L (135-145); TOTAL CARBON DIOXIDE 25.7 MMOL/L (24-32); TOTAL PROTEIN 6.8 G/DL (6.4-8.2); eGFR > 90 ML/MIN
[2017-09-09 06:30] VITALS: BP 94/59
[2017-09-09] MEDS: dexamethasone 1mg tablet PO SCH ×2 (07:07→17:20)
[2017-09-09] MEDS: CefTRIAXone 2gm/NS 100ml IVPB 100 ML IV SCH (07:07)
[2017-09-09] MEDS: famotidine 20mg tablet PO SCH (07:07)
[2017-09-09] MEDS: lactobacillus rhamnosus 10,000 MMU CELLS/CAPSULE PO SCH (07:07)
[2017-09-09] MEDS: K and/or MAG REPLACEMENT MC SCH (08:00)
[2017-09-09] MEDS ORDERED: CEFU250S PO (09:13)
[2017-09-09] MEDS: insulin Lispro (HumaLOG) vial - multi-dose SQ SCH ×2 (09:40→13:51)
[2017-09-09 11:00] VITALS: BP 91/56
[2017-09-09 15:00] VITALS: BP_SYST 91; BP_SYST 96; BP_DIAS 59; BP_DIAS 61
[2017-09-09] MEDS ORDERED: NYSTATIN CREAM - 30GM TUBE TP SCH (20:00)
== END 2017-09-09 18:05 | DRG 644 ==
LOC: PCU 3S 19:15
PROVIDERS: ADMIT Internal Medicine; ATTEND Internal Medicine
DX: E22.2 Syndrome of inappropriate secretion of antidiuretic hormone (principal); E44.0 Moderate protein-calorie malnutrition; Z68.31 Body mass index [BMI] 31.0-31.9, adult; G40.909 Epilepsy, unspecified, not intractable, without status epilepticus; E11.65 Type 2 diabetes mellitus with hyperglycemia; G80.9 Cerebral palsy, unspecified; Z79.899 Other long term (current) drug therapy; Z86.61 Personal history of infections of the central nervous system; Z83.3 Family history of diabetes mellitus; Z82.61 Family history of arthritis; Z82.49 Family history of ischemic heart disease and other diseases of the circulatory system
CPT/HCPCS: 36415; 80048; 80053; 80185; 81001; 82570; 82948; 83036; 83735; 83935; 84133; 84300; 85025; 87070; 97116; 97162; 97530; A6212; A6213; A6223; A6250; A6257; J0696; J1815; J3490; J7030; J8540